=== PATIENT | female | born 1965 | race Caucasian/White ===

== ENCOUNTER 2023-07-14 14:35 | Outpatient (AMB) | payer MEDICAID, SELFPAY ==
--- NOTE | 2023-07-14 14:44 | A.OFFVIS_ITS ---
Vital Signs 07/14/23 14:52 Height 5 ft 4 in Weight 186 lb 2 oz BMI 31.9 BP 122/80 Blood Pressure Location Rt brachial Position Sitting Respiration 16 Pulse 76 Pulse Source Pulse Oximeter Pulse Oximetry (%) 98 Oxygen Delivery Method Room Air Intake Visit Reasons: [id number] Intake Note: Pt presents to the office for new pt evaluation for tremors. Pt reports this has been going on for 9 months, full body, constant initially and has slowly improved. [employer]ic Required: No Allergies No Known Allergies Allergy (Verified 07/14/23 14:49) Medication List - Last Reconciled 07/14/23 by Brea Vela MD B2-magnesium cit,oxid-feverfew 100-90-25 mg caps PO coenzyme Q10 (Ultra CoQ10) 75 mg PO DAILY diclofenac sodium 1% (Aleve (diclofenac)) 2 grams topical QID lorazepam 0.5 mg PO BEDTIME PRN lorazepam 1 mg PO DAILY PRN tramadol 50 mg PO DAILY HPI Comments Details: 57y/o right handed female comes for evaluation of tremors which started in September 2022. she believes it is a reaction to medication- baclofen . she started not icing twitching , tremors, generalized muscle spasms, palpitations once she was started on baclofen 5 mg qhs for fibromyalgia. she also noticed that her BP was high for 6 mths. She took it 6 days and stopped. Her symptoms did not resolve. It was severe for 4 mths . It is milder and she says it fluctuates . The tremors were constant and she frequently had difficulty holding on to things. In November 2022 her tremors she started having headaches, vertigo, eye movement coordination which lasted 3 months.she was seen by television newscast director, who suggested visual integration exercises, had vestibular therapy. she also reports h/o visual migraine , fibromyalgia, chronic fatigue. she had 5 episodes of visual aura with headaches lasting 2 hrs.Her last episode was 5 years ago. She reports fh/o tremors in her mother, maternal grandfather. she works as a psychotherapist and handles her anxiety with meditation , supplements. she also reports ongoing memory issues [facility] Medical History (Updated 07/14/23 @ 15:33 by Brea Vela MD) Cognitive change Tremors of nervous system Lyme borreliosis Anxiety Chronic pain Carpal tunnel syndrome Chronic fatigue syndrome Vitamin D deficiency Insomnia Lichen sclerosus of female genitalia Varicose veins of both lower extremities Fibromyalgia Family History (Updated 07/14/23 @ 14:59 by Mónica Villarreal CMA) Mother Osteoporosis Melanoma Essential tremor Father HTN (hypertension) Diabetes Multiple myeloma Social History (Updated 07/14/23 @ 15:00 by Mónica Villarreal CMA) Household Members: None Housing: Apartment Alcohol intake: current Comment: occasional Patient Tobacco Use Status: Never used Tobacco Use of substances other than those prescribed or required for medical reasons: No Physical Exam Vital Signs: Last Vital Signs Pulse 76 07/14/23 14:52 Resp 16 07/14/23 14:52 BP 122/80 07/14/23 14:52 Pulse Ox 98 07/14/23 14:52 Oxygen Delivery Method Room Air 07/14/23 14:52 BMI result Body Mass Index 31.9 Const General: cooperative, healthy appearing and anxious Nutritional Appearance: average body habitus Orientation/consciousness: patient oriented x3 Eyes Pupils: Equal, round and reactive pupils present Neuro Other: mild action , postural tremors , aleah UE Mild head and voice tremors General: patient oriented x3, gait normal, tone normal, moves all extremities and no focal motor deficits Cranial nerves: Yes Facial sensation intact/muscles of mastication intact, Yes Equal, round and reactive pupils present, Yes Bilaterally intact EOM present, Yes Nystagmus not present, Yes Normal facial strength present, Yes Midline tongue present and Yes Symmetric palate elevation present Gait exam (Neuro): Normal gait present Motor exam (neuro): 5/5 motor strength present throughout and Normal motor muscle tone present throughout Deep tendon reflexes (DTR's): Right triceps reflex intensity grade: 2+, Left triceps reflex intensity grade: 2+, Rt Biceps (C5, C6): 2+, Left biceps reflex intensity grade: 2+, Right brachioradialis reflex intensity grade: 2+, Left brachioradialis reflex intensity grade: 2+, Right patellar reflex intensity grade: 2+ and Left patellar reflex intensity grade: 2+ Coordination: [id number] test normal Assessment & Plan Assessment & Plan (1) Tremors of nervous system: Comment: exaggerated physiological tremors, mood related . No evidence of parkinsons on todays exam Code(s): R25.1 - Tremor, unspecified Category: Medical Plan Discussed the possible causes - familial, exaggerated and possible mood related The patient feels her mood is stable with her meditation, adapting techniques and supplements. It is mild now and will not start on any medications. She is concerned about her lyme disease 20 years ago causing memory issues. I suggested neuropsych evaluation if she is concerned about her cognition. MRI brain Consider home sleep test PLEASE SEE SCANNED SUPPLEMENT REPORT IN HER CHART Orders: Orders MR head/brain wo con Today R25.1 - Tremor, unspecified, R41.89 - Other symptoms and signs involving cognitive functions and awareness Coding Level of Care Code New Pt Level 4 (53141) Diagnoses Tremors of nervous system R25.1
[2023-07-14 14:52] VITALS: BP 122/80; PULSE 76; RESP 16; O2SAT 98; BMI 31.9
== END 2023-07-14 15:41 | disposition home or self-care (01) ==
PROVIDERS: PCP Family Medicine; Visit Provider Psychiatry & Neurology Neurology
DX: R25.1 Tremor, unspecified (principal)
CPT/HCPCS: 99204

== ENCOUNTER → 2023-07-14 14:35 | Outpatient (BNVA) | payer MEDICAID, SELFPAY | PROVIDERS: PCP Family Medicine; Visit Provider Psychiatry & Neurology Neurology | DX: R25.1 Tremor, unspecified (principal) | CPT/HCPCS: 99202 ==